=== PATIENT | female | born 1945 | race Caucasian/White ===

== ENCOUNTER 2023-05-08 05:45 | Day surgery (SDC) | payer BC ==
[2023-05-01 11:48] LABS: ALBUMIN 3.8 G/DL (3.4-5.0); ALBUMIN/GLOBULIN RATIO 1.1 (1.1-1.5); ALKALINE PHOSPHATASE 62 IU/L (46-116); BLOOD UREA NITROGEN 8 MG/DL (7-18); BUN/CREATININE RATIO 9.5 (10.0-20.0); CALCIUM 8.8 MG/DL (8.5-10.1); CHLORIDE 103 MMOL/L (99-107); CREATININE 0.84 MG/DL (0.40-0.90); PRE OP ALT 44 U/L (30-65); PRE OP ANION GAP 10 (8-16); PRE OP AST 32 U/L (10-37); PRE OP BILIRUB, TOTAL 0.7 MG/DL (0.0-1.0); PRE OP GLUCOSE 96 MG/DL (70-104); PRE OP POTASSIUM 3.8 MMOL/L (3.4-5.1); PRE OP SODIUM 137 MMOL/L (135-145); TOTAL CARBON DIOXIDE 24.2 MMOL/L (24-32); TOTAL PROTEIN 7.2 G/DL (6.4-8.2); eGFR 66 ML/MIN
[2023-05-01 12:16] LABS: BASOPHILS % (AUTO) 0.4 % (0-1); EOSINOPHILS # (AUTO) 0.2 X10'3 (0-0.9); EOSINOPHILS % (AUTO) 3.3 % (0-6); LYMPHOCYTES # (AUTO) 1.7 X10'3 (1.1-4.8); LYMPHOCYTES % (AUTO) 25.5 % (21-51); MEAN CORPUSCULAR HGB CONC 33.7 g/dL (33.0-36.5); MEAN CORPUSCULAR VOLUME 98.1 FL (78-98); MEAN PLATELET VOLUME 9.1 FL (7.4-10.4); MONOCYTES # (AUTO) 0.6 X10'3 (0-0.9); MONOCYTES % (AUTO) 8.7 % (2-12); NEUTROPHILS # (AUTO) 4.1 X10'3 (1.8-7.7); NEUTROPHILS % (AUTO) 62.1 % (42-75); PRE OP HEMATOCRIT 42.8 % (35.0-45.0); PRE OP HEMOGLOBIN 14.4 g/dL (12.0-16.0); PRE OP PLATELET COUNT 208 X10'3 (140-440); PRE OP WHITE BLOOD COUNT 6.6 10'3 (4.8-10.8); RED BLOOD COUNT 4.36 X10'6 (4.20-5.60); RED CELL DISTRIBUTION WIDTH 13.6 % (11.5-14.5)
[2023-05-08] VITALS (7 sets, daily range): BP systolic 137–181; BP diastolic 81–95; PULSE 72–85; RESP 13–22; TEMP 98.7; O2SAT 95–100
[~2023-05-08] VITALS: Ht 165.1 cm; Wt 88.4 kg
[~2023-05-08 05:45] MED LIST: LEVO50TA8 PO; ROSU10TA28 PO
[2023-05-08] MEDS: famotidine 20mg tablet PO ONE (06:23)
[2023-05-08] MEDS: cefazolin 2gm/D5W 100mL 100 ML IV ONE (06:23)
[2023-05-08] MEDS: ringers solution, lacted 1,000 ML IV SCH (06:25)
[2023-05-08] MEDS ORDERED: meperidine/PF 25mg/ml syringe IV PRN ×3 (07:15)
[2023-05-08] MEDS ORDERED: acetaminophen 1,000mg/100ml IV 100 ML IV ONE (07:15)
[2023-05-08] MEDS ORDERED: morphine 4 MG/ML inj SYRINge IV PRN (07:15)
[2023-05-08] MEDS ORDERED: hydrALAZINE 20mg/ml inj. IV PRN (07:15)
[2023-05-08] MEDS ORDERED: ringers solution, lacted 1,000 ML IV SCH (07:15)
[2023-05-08] MEDS ORDERED: ondansetron/PF 4mg/2ml inj IV PRN (07:15)
[2023-05-08] MEDS ORDERED: labetalol 20mg/4ml (5mg/ml) syringe IV PRN (07:15)
[2023-05-08] MEDS ORDERED: proCHLORperazine 10 MG/2 ml inj IV PRN (07:15)
[2023-05-08] MEDS ORDERED: morphine 2 MG/ML inj. syringe IV PRN (07:15)
[2023-05-08] MEDS ORDERED: sevoflurane 250ml liquid IH ONE (07:28)
[2023-05-08] MEDS ORDERED: BUPIVACAINE liposomal/PF 13.3 MG/ML vial IM ONE (07:31)
[2023-05-08] MEDS ORDERED: BUPIVAcaine/PF 2.5mg/ml (0.25%) 10ml vial ONE (07:31)
[2023-05-08] MEDS ORDERED: fentaNYL/PF 50MCG/1 ML 2ML syringe ONE (07:35)
[2023-05-08] MEDS ORDERED: midazolam 1 mg/ML 2ml injection ONE (07:39)
[2023-05-08] MEDS: BUPIVAcaine/PF 2.5 mg/ml (0.25%) 30ml vial ONE (08:17)
[2023-05-08] MEDS ORDERED: LIDOcaine 1%/PF 5ML 10 MG/ML VIAL ONE (08:41)
[2023-05-08] MEDS ORDERED: ePHEDrine 50MG/ML INJ. ONE (08:41)
[2023-05-08] MEDS ORDERED: dexamethasone sod phosphate 4mg/ml inj. ONE (08:41)
[2023-05-08] MEDS ORDERED: ondansetron/PF 4mg/2ml inj ONE (08:41)
[2023-05-08] MEDS ORDERED: propofol inj 20 ML IV ONE (08:41)
[2023-05-08] MEDS ORDERED: 0.9 % SODIUM CHLORIDE 10 ML VIAL ONE (08:41)
== END 2023-05-08 09:49 | disposition home or self-care (01) ==
LOC: PAS 05:45
PROVIDERS: ATTEND Surgery
DX: D05.12 Intraductal carcinoma in situ of left breast (principal); Z86.73 Personal history of transient ischemic attack (TIA), and cerebral infarction without residual deficits; Z79.82 Long term (current) use of aspirin; Z79.899 Other long term (current) drug therapy; Z87.891 Personal history of nicotine dependence; Z72.89 Other problems related to lifestyle; Z96.653 Presence of artificial knee joint, bilateral; Z79.01 Long term (current) use of anticoagulants; Z86.14 Personal history of Methicillin resistant Staphylococcus aureus infection; Z88.8 Allergy status to other drugs, medicaments and biological substances; Z88.5 Allergy status to narcotic agent
CPT/HCPCS: 19301; 36415; 64999; 80053; 82948; 85025; 93005; C9290; J0690; J1100; J2250; J2405; J2704; J3010; J3490; J7030; J7120; Z7506; Z7508; Z7512; A4215; A4618; A6449; A7000